=== PATIENT | female | born 1995 | race Caucasian/White ===

== ENCOUNTER 2020-04-09 14:46 | Outpatient (REF) | payer OTHER, SELFPAY ==
[2020-04-09 17:18] LABS: MANUAL DIFF FLAG NO
[2020-04-09 17:30] LABS: Basophils Percent Auto 0.4 % (0-2); Eosinophils Absolute Auto 0.1 X10*3/uL (0.0-0.4); Eosinophils Percent Auto 0.9 % (0-4); Hemoglobin 10.6 g/dl (12.0-16.0); Imm Gran Abs Auto 0.05 X10*3/uL (0.00-0.03); Imm Gran Pct Auto 0.5 % (0.0-0.4); Lymphocytes Absolute Auto 2.3 X10*3/uL (1.2-4.9); Lymphocytes Percent Auto 21.1 % (20-40); Mean Corpuscular HGB Conc 34.2 g/dl (31.0-35.0); Mean Corpuscular Hemoglobin 30.2 pg (27.0-33.0); Mean Corpuscular Volume 88.3 fL (80-98); Mean Platelet Volume 10.4 fL (9.4-12.3); Monocytes Absolute Auto 0.6 X10*3/uL (0.1-1.2); Neutrophils Absolute Auto 7.6 X10*3/uL (2.0-8.3); Neutrophils Percent Auto 71.1 % (45-73); Platelet Count 252 X10*3/uL (160-400); Red Blood Count 3.51 X10*6/uL (4.20-5.50); Red Cell Distribution Width 14.2 % (11.0-16.0); White Blood Count 10.7 X10*3/uL (4.8-10.8)
[2020-04-10 11:08] LABS: CT PCR NOT DETECTED (Not Detect.)
[2020-04-10 11:09] LABS: NG PCR NOT DETECTED (Not Detect.)
== END 2020-04-09 14:47 | disposition home or self-care (01) ==
LOC: HO.LAB 14:46
PROVIDERS: Visit Provider Advanced Practice Midwife
DX: O20.9 Hemorrhage in early pregnancy, unspecified (principal); Z3A.14 14 weeks gestation of pregnancy
CPT/HCPCS: 36415; 85025; 87491; 87591; 99212

== ENCOUNTER → 2020-05-07 11:07 | Outpatient (BNVA) | payer OTHER, SELFPAY | PROVIDERS: Visit Provider Advanced Practice Midwife | DX: Z76.89 Persons encountering health services in other specified circumstances (principal) ==

== ENCOUNTER 2020-05-11 07:26 | Outpatient (REF) | payer OTHER, SELFPAY ==
--- NOTE | 2020-05-11 07:36 | US_ITS ---
EXAMINATION: US OBSTETRICAL CLINICAL INFORMATION: 24-year-old at 20.1 weeks of gestation Suspected anomaly COMPARISON: 03/30/2020 TECHNIQUE: Real-time transabdominal ultrasound was performed using C1-5 megahertz transducer. FINDINGS: A single, active, fetus is seen in vertex presentation. The placenta is anterior without previa, and the amniotic fluid volume is wnl. MEASUREMENTS: 1. Biparietal Diameter: 4.5 cm; 19.4 wks 2. Occipital Frontal Diameter: 5.9 cm 3. Head Circumference: 17.1 cm; 19.5 wks 4. Abdominal Circumference: 14.0 cm; 19.3 wks 5. Femur Length: 3.13 cm; 18.6 wks 6. Humerus Length: 3.0 cm; 19.6 wks 7. Tibia Length: 2.9 cm; 20.3 wks 8. Ulna Length: 2.9 cm; 20.6 wks 9. Lateral ventricle: 0.7 cm 10. Cerebellum: 1.9 cm; 19.6 wks 11. Cisterna Magna: 0.5 cm 12. Nuchal Fold: 2.8 mm 13. Heart Rate: 140 beats per minute Rt ovary: Unable to visualize Lt ovary: Unable to visualize Cervical length 5.3 cm on T/A. GESTATIONAL AGE: 1. Established GA: 20.1 wks 2. GA from [facility]: 19.5 wks ESTIMATED DATE OF DELIVERY: 1. Established AAYUSH: 09/27/2020 2. A[facility]USH from [facility]: 09/30/2020 ANATOMY: The visualized anatomy includes but not limited to: 1. Cranium: Normal 2. Intracranial anatomy: cavum septum pellucidi, lateral ventricles, choroid plexus, cerebellum, posterior fossa, third and fourth ventricles. 3. face: orbits, lip/palate, profile, nasal bone 4. Heart: four-chamber view of the heart, ventricular septum, foramen ovale, pulmonary vein, left and right outflow tracts, three-vessel view, 3 vessel trachea view, aortic and ductal arches, situs.. 5. Diaphragm: Normal 6. Abdominal wall: Normal 7. Cord Insertion: Normal 8. Spine: Cervical, thoracic, lumbar, sacral. 9. Stomach: Normal size and shape 10. Right Kidney: Normal 11. Left Kidney: Normal 12. 3 vessel cord: Normal 13. Upper extremity: Open hands, fifth digit. 14. Lower extremity: Tibia, fibula, bilateral feet. 15. Bladder: Normal 16. Genitalia: US/US OB /maternal detail IMPRESSION: 1. Single, living, intrauterine with appropriate biometry. 2. Normal survey DISCUSSION: I reviewed today's ultrasound findings. We discussed the limitations of ultrasound in diagnosing aneuploidy and other congenital abnormalities. I reviewed the differences between screening test and diagnostic test. Amniocentesis was discussed and declined. She was informed that the baseline incidence of congenital abnormalities is approximately 3-5%. Not all these conditions are diagnosable in utero. RECOMMENDATIONS: 1. Further ultrasound has not been scheduled today. Thank you for allowing me to participate in her care. Visiting time 25 minutes. Majority of this visit was spent reviewing and discussing her care.
== END 2020-05-11 07:27 | disposition home or self-care (01) ==
LOC: HO.US 07:26
PROVIDERS: Visit Provider Advanced Practice Midwife
DX: Z34.82 Encounter for supervision of other normal pregnancy, second trimester (principal)
CPT/HCPCS: 76811

== ENCOUNTER 2020-05-21 08:24 | Outpatient (REF) | payer OTHER, SELFPAY | END 2020-05-21 08:25 | disposition home or self-care (01) | LOC: HO.LAB 08:24 | PROVIDERS: Visit Provider Internal Medicine | DX: Z20.828 Contact with and (suspected) exposure to other viral communicable diseases (principal) | CPT/HCPCS: C9803; U0003 ==

== ENCOUNTER → 2020-07-19 10:54 | Outpatient (BNVA) | payer OTHER, SELFPAY | PROVIDERS: Visit Provider Advanced Practice Midwife | DX: R10.2 Pelvic and perineal pain (principal); Z34.93 Encounter for supervision of normal pregnancy, unspecified, third trimester; R10.9 Unspecified abdominal pain; R12 Heartburn; Z98.891 History of uterine scar from previous surgery | CPT/HCPCS: 81003; 99212 ==

== ENCOUNTER → 2020-07-26 10:36 | Outpatient (BNVA) | payer OTHER, SELFPAY | PROVIDERS: Visit Provider Advanced Practice Midwife | DX: O99.719 Diseases of the skin and subcutaneous tissue complicating pregnancy, unspecified trimester (principal); L29.9 Pruritus, unspecified | CPT/HCPCS: 99212 ==

== ENCOUNTER 2021-08-06 16:03 | Emergency (ER) | payer OTHER, SELFPAY ==
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
[2021-08-06 16:29] VITALS: BP 118/80; PULSE 75; RESP 22; TEMP 36.4; O2SAT 98; BMI 28.5
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
[2021-08-06] MEDS: Acetaminophen 325 MG TABLET 975 MG PO (17:40)
[2021-08-06] MEDS: diazePAM 5 MG TABLET 10 MG PO (17:41)
[2021-08-06 19:07] VITALS: BP 106/66; PULSE 68; RESP 16; O2SAT 99
== END 2021-08-06 19:18 | disposition home or self-care (01) ==
PROVIDERS: Emergency Provider Internal Medicine
DX: S06.0X0A Concussion without loss of consciousness, initial encounter (principal); S13.4XXA Sprain of ligaments of cervical spine, initial encounter; S63.502A Unspecified sprain of left wrist, initial encounter; S73.102A Unspecified sprain of left hip, initial encounter; S93.402A Sprain of unspecified ligament of left ankle, initial encounter; V43.52XA Car driver injured in collision with other type car in traffic accident, initial encounter; Y93.89 Activity, other specified; Y92.414 Local residential or business street as the place of occurrence of the external cause; Y99.9 Unspecified external cause status
CPT/HCPCS: 70450; 70486; 72125; 73110; 73130; 73502; 73610; 99284; 99291